=== PATIENT | male | born 1990 | race Caucasian/White ===

== ENCOUNTER 2018-09-11 10:25 | Day surgery (SDC) | payer BC ==
[~2018-09-11 10:25] MED LIST: CEFAZOLIN 2 GM/50 ML (PMX) 50 ML IVPB
[2018-09-11] MEDS: LACTATED RINGER'S 1,000 ML IV (11:25)
[2018-09-11] MEDS ORDERED: CEFAZOLIN 1 GM INJ (17:41)
[2018-09-11] MEDS ORDERED: FENTAnyl 50 MCG/ML VIAL (17:41)
[2018-09-11] MEDS ORDERED: ROCURONIUM 50 MG INJ (17:41)
[2018-09-11] MEDS ORDERED: MIDAZOLAM 1 MG/ML 2 ML INJ (17:41)
[2018-09-11] MEDS ORDERED: PROPOFOL 20 ML (17:41)
[2018-09-11] MEDS ORDERED: EPHEDrine 25 MG/5 ML SYG (18:03)
[2018-09-11] MEDS ORDERED: KETOROLAC 30 MG INJ (18:04)
[2018-09-11] MEDS ORDERED: METOCLOPRAMIDE 10 MG INJ (18:04)
[2018-09-11] MEDS ORDERED: DEXAMETHASONE 4 MG/ML 5 ML INJ (18:04)
[2018-09-11] MEDS ORDERED: ONDANSETRON 4 MG INJ (18:04)
[2018-09-11] MEDS ORDERED: FUROSEMIDE 20 MG INJ (18:42)
[2018-09-11] MEDS ORDERED: SUGAMMADEX SODIUM 200 MG/2 ML VIAL IV (18:48)
[2018-09-11] MEDS ORDERED: MEPERIDINE 100 MG INJ (18:55)
[2018-09-11] MEDS ORDERED: HYDROmorphONE 1 MG/5 ML IV SYRINGE IV ×3 (19:30)
[2018-09-11] MEDS ORDERED: KETOROLAC 30 MG INJ IV (19:30)
[2018-09-11] MEDS ORDERED: MEPERIDINE 25 MG INJ IV (19:30)
[2018-09-11] MEDS ORDERED: ONDANSETRON 4 MG INJ IV (19:30)
[2018-09-11] MEDS ORDERED: OXYCODONE/ACETAMINOPHEN (5/325) TAB PO ×2 (19:30)
[2018-09-11] MEDS ORDERED: METOCLOPRAMIDE 10 MG INJ IV (19:30)
[2018-09-11] MEDS ORDERED: EPHEDrine 25 MG/5 ML SYG IV (19:30)
[2018-09-11] MEDS ORDERED: FENTAnyl 50 MCG/ML VIAL IV ×3 (19:30)
[2018-09-11] MEDS ORDERED: DIPHENHYDRAMINE 50 MG INJ IV (19:30)
[2018-09-11] MEDS ORDERED: HYDROCODONE/APAP (5/325) TAB PO (19:30)
[2018-09-11] MEDS: ONDANSETRON 4 MG INJ IV (20:27)
== END 2018-09-11 20:50 | disposition home or self-care (01) ==
LOC: SDS 10:25
DX: N20.0 Calculus of kidney (principal)
CPT/HCPCS: 50590; 74430

== ENCOUNTER 2018-10-28 14:11 | Emergency (ER) | payer BC ==
[2018-10-28] MEDS: morphine 4 MG/ML VIAL IV (14:37)
[2018-10-28] MEDS: ONDANSETRON 4 MG INJ IV (14:37)
[2018-10-28] MEDS: KETOROLAC 15 MG INJ IV (14:37)
[2018-10-28] MEDS: SOD CHLORIDE 0.9% 1,000 ML IV (14:38)
[2018-10-28 14:39] LABS: ADD MAN DIFF? NO
[2018-10-28 14:41] LABS: WHITE BLOOD COUNT 16.9 10^3/ul (4.8-10.8)
[2018-10-28 14:41] LABS: BASOPHIL # 0.1 10^3/ul (0.0-0.1); BASOPHILS % 0.4 % (0.0-2.0); EOSINOPHILS % 0.1 % (0.0-7.0); HEMATOCRIT 46.8 % (42.0-52.0); HEMOGLOBIN 15.8 g/dl (14.0-18.0); LYMPHOCYTES # 1.7 10^3/ul (0.8-2.9); LYMPHOCYTES % 10.3 % (15.0-51.0); MEAN CORPUSCULAR HEMOGLOBIN 28.5 pg (29.0-33.0); MEAN CORPUSCULAR HGB CONC 33.8 g/dl (32.0-37.0); MEAN CORPUSCULAR VOLUME 84.5 fl (82.0-101.0); MEAN PLATELET VOLUME 9.7 fl (7.4-10.4); MONOCYTE # 0.7 10^3/ul (0.3-0.9); MONOCYTES % 4.1 % (0.0-11.0); NEUTROPHIL # 14.3 10^3/ul (1.6-7.5); NEUTROPHILS % 84.5 % (39.0-77.0); PLATELET COUNT 246 10^3/UL (140-415); RED BLOOD COUNT 5.54 10^6/ul (4.70-6.10)
[2018-10-28 14:45] LABS: ADD UMIC YES; UR ASCORBIC ACID NEGATIVE (NEGATIVE); UR BILIRUBIN (Dip) NEGATIVE (NEGATIVE); UR BLOOD (Dip) 2+ mg/dL (NEGATIVE); UR CLARITY CLEAR (CLEAR); UR COLOR YELLOW (YELLOW); UR GLUCOSE (Dip) NEGATIVE (NEGATIVE); UR KETONES (Dip) TRACE mg/dL (NEGATIVE); UR LEUKOCYTE ESTERASE (Dip) NEGATIVE Leu/ul (NEGATIVE); UR NITRITE (Dip) NEGATIVE (NEGATIVE); UR RBC 4 /HPF (0-5); UR SPECIFIC GRAVITY (Dip) 1.021 (1.003-1.030); UR TOTAL PROTEIN (Dip) NEGATIVE (NEGATIVE); UR UROBILINOGEN (Dip) NEGATIVE (NEGATIVE); UR WBC 1 /HPF (0-5)
[2018-10-28 14:58] LABS: ALANINE AMINOTRANSFERASE 39 IU/L (13-69); ALBUMIN/GLOBULIN RATIO 1.51; ALKALINE PHOSPHATASE 81 IU/L (42-121); ANION GAP 11 (5-13); ASPARTATE AMINO TRANSFERASE 23 IU/L (15-46); BILIRUBIN,INDIRECT 2.1 mg/dl (0-1.1); BILIRUBIN,TOTAL 2.1 mg/dl (0.2-1.3); BLOOD UREA NITROGEN 17 mg/dl (7-20); CARBON DIOXIDE 25 mmol/L (21-31); CHLORIDE 107 mmol/L (97-110); CREATININE 1.11 mg/dl (0.61-1.24); Estimated GFR > 60 mL/min (>60); GLUCOSE 102 mg/dl (70-220); LIPASE 103 U/L (23-300); POTASSIUM 4.3 mmol/L (3.5-5.1); SODIUM 143 mmol/L (135-144); TOTAL PROTEIN 8.3 g/dl (6.1-8.1)
[2018-10-28] MEDS: HYDROCODONE/APAP (5/325) TAB PO (16:46)
== END 2018-10-28 16:53 | disposition home or self-care (01) ==
LOC: FTE 16:53
DX: N20.0 Calculus of kidney (principal); N23 Unspecified renal colic
CPT/HCPCS: 36415; 74018; 76775; 80053; 81001; 83690; 85025; 87086; 96374; 96375; 99285-25